=== PATIENT | female | born 1970 | race Two or more races ===

== ENCOUNTER 2022-06-28 12:01 | Emergency (ER) | payer MEDICAID ==
[~2022-06-28] VITALS: Ht 157.5 cm; Wt 57.6 kg
--- NOTE | 2022-06-28 12:05 | NUR ---
RECEIVED PT 52 YRS FEMALE FROM HOME C/O SWALLEN ON NECK FROM OUT SIDE FOR 2 WEKK ABLE TO SWALLOW WITH WITH NO DIFFECULTY RESTING AT THIS TIME
--- NOTE | 2022-06-28 13:05 | NUR ---
Patient discharged to home in stable condition. Written and verbal after care instructions given. Patient verbalizes understanding of instruction.
[2022-06-28 13:08] VITALS: BP 97/58
== END 2022-06-28 13:10 | disposition home or self-care (01) ==
LOC: ER 12:21
DX: J02.0 Streptococcal pharyngitis (principal); Z88.2 Allergy status to sulfonamides